=== PATIENT | male | born 1985 | race Caucasian/White ===

== ENCOUNTER 2017-05-19 02:15 | Emergency (ER) | payer MEDICAID ==
[~2017-05-19] VITALS: Ht 167.6 cm; Wt 70.3 kg
[2017-05-19 04:03] LABS: Basophils # (auto) 0.1 uL; Basophils % (auto) 0.6 % (0.0-2.0); Eosinophils # (auto) 0 uL; Eosinophils % (auto) 0.1 % (0.0-7.0); Hematocrit 41.9 % (41.0-53.0); Hemoglobin 14.1 g/dL (13.5-17.5); Lymphocytes # (auto) 3.7 uL; Mean Corpuscular Hemoglobin 28.4 pg (28.0-32.0); Mean Corpuscular Hgb Conc. 33.7 g/dL (32.0-36.0); Mean Corpuscular Volume 84.5 fL (80.0-100.0); Monocytes # (auto) 1.2 uL; Neutrophils % (auto) 70.3 % (37.0-80.0); Platelet Count (auto) 210 10^3/uL (140-450); Red Blood Cells 4.95 10^6/uL (4.5-5.90); Red Cell Distribution Width 14.1 % (11.8-14.3)
[2017-05-19 04:26] LABS: Albumin 3.6 g/dL (3.4-5.0); BUN/Creatinine Ratio 13.2; Calcium 8.8 mg/dL (8.5-10.1); Potassium 3.6 mmol/L (3.5-5.1)
[2017-05-19 04:29] LABS: Bilirubin, Total 0.9 mg/dL (0.2-1.0); Total Protein 8.2 g/dL (6.4-8.2)
[2017-05-19] MEDS ORDERED: SODIUM CHLORIDE 0.9% 1,000 ML IV ONE (08:08)
[2017-05-19] MEDS ORDERED: cefTRIAXone 1GM/10ml IVPUSH 10 ML IV ONE (08:15)
[2017-05-19] MEDS ORDERED: LIDOCAINE 2%HCL (LOCAL ANESTH.) INJ 20ML MDV ID ONE (08:15)
[2017-05-19] MEDS ORDERED: TETANUS-DIPTH-ACEL PERTUSSIS 0.5ML SYRG IM ONE (08:15)
[2017-05-19] MEDS ORDERED: NEOMYCIN-BACITRACIN-POLYM UNITDOSE PKG TOP OINT TOP ONE (08:15)
[2017-05-19 09:40] VITALS: BP 98/66
[2017-05-19] MEDS ORDERED: KETOROLAC TROMETH 30 MG/ML 1ML VIAL IV ONE (10:30)
[2017-05-19] MEDS ORDERED: PROMETHAZINE HCL 25 MG/ML 1ML IV ONE (10:30)
[2017-05-19 10:48] LABS: Urine Bacteria NONE SEEN /hpf (None Seen); Urine Blood Negative /uL (Negative); Urine Mucus FEW (None Seen); Urine Specific Gravity 1.027 (1.001-1.035); Urine WBC 2 /hpf (0 - 3)
[2017-05-19 11:14] LABS: Alcohol, Urine < 3.0 mg/dL (0-5); Amphetamine Screen, Urine POSITIVE (NEGATIVE); Barbiturate Scree,Urine NEGATIVE (NEGATIVE); Benzodiazephine Screen, Urine NEGATIVE (NEGATIVE); Cannabinoid Screen, Urine POSITIVE (NEGATIVE); Cocaine Screen, Urine NEGATIVE (NEGATIVE); Opiate Scree,Urine POSITIVE (NEGATIVE); Phencyclidine Screen, Urine NEGATIVE (NEGATIVE)
== END 2017-05-19 11:08 | disposition home or self-care (01) ==
LOC: EDBD 02:15 → ER 02:15
DX: L02.511 Cutaneous abscess of right hand (principal); F11.20 Opioid dependence, uncomplicated; F15.10 Other stimulant abuse, uncomplicated; F12.10 Cannabis abuse, uncomplicated; Z59.0 Homelessness; Z88.0 Allergy status to penicillin
CPT/HCPCS: 10060; 36415; 71046; 73130; 80053; 80307; 81001; 83735; 85025; 87205; 90471; 90715; 96361; 96374; 96375; 99285; J1885; J2550; J7030; 87077; 87186

== ENCOUNTER 2019-11-07 22:40 | Emergency (ER) | payer MEDICAID | END 2019-11-07 23:00 | disposition left against medical advice (07) | LOC: ER 22:40 → EDBD 22:40 → ER 23:00 | DX: T40.0X1A Poisoning by opium, accidental (unintentional), initial encounter (principal); F17.210 Nicotine dependence, cigarettes, uncomplicated; F12.10 Cannabis abuse, uncomplicated; F15.10 Other stimulant abuse, uncomplicated; Z59.0 Homelessness; Z88.0 Allergy status to penicillin; Y92.9 Unspecified place or not applicable ==

== ENCOUNTER 2021-06-05 07:01 | Emergency (ER) | payer MEDICAID ==
[~2021-06-05] VITALS: Ht 175.3 cm; Wt 77.1 kg
[2021-06-05] MEDS ORDERED: ACET-1158 PO (09:35)
[2021-06-05] MEDS ORDERED: DIPH25CA66 PO (09:35)
[2021-06-05] MEDS ORDERED: AMOX-277 PO (09:35)
[2021-06-05] MEDS ORDERED: PRED20TA2 PO (09:35)
[2021-06-05 09:51] VITALS: BP 121/68
== END 2021-06-05 10:14 | disposition home or self-care (01) ==
LOC: ER 07:01
DX: T78.40XA Allergy, unspecified, initial encounter (principal); K02.9 Dental caries, unspecified; F17.210 Nicotine dependence, cigarettes, uncomplicated; Z59.00 Homelessness unspecified; Z79.2 Long term (current) use of antibiotics; Z79.899 Other long term (current) drug therapy; Z88.0 Allergy status to penicillin; Y92.89 Other specified places as the place of occurrence of the external cause

== ENCOUNTER 2023-08-01 22:46 | Emergency (ER) | payer MEDICAID ==
[~2023-08-01] VITALS: Ht 172.7 cm; Wt 85.0 kg
[~2023-08-01 22:46] MED LIST: ACET500T58 PO; AMOX875T4 PO; DIPH25CA66 PO; PRED20TA2 PO
[2023-08-01] MEDS ORDERED: SODIUM CHLORIDE 0.9% 1,000 ML IV ONE (23:15)
[2023-08-01 23:55] LABS: Basophils # (auto) 0.1 10 ^3/uL (0-0.2); Basophils % (auto) 0.4 % (0.0-2.0); Eosinophils # (auto) 0 10 ^3/uL (0-0.8); Eosinophils % (auto) 0.2 % (0.0-7.0); Hematocrit 38.5 % (41.0-53.0); Hemoglobin 13.3 g/dL (13.5-17.5); Lymphocytes # (auto) 1.6 10 ^3/uL (0.4-5.4); Lymphocytes % (auto) 8.9 % (10.0-50.0); Mean Corpuscular Hemoglobin 29.1 pg (28.0-32.0); Mean Corpuscular Hgb Conc. 34.4 g/dL (32.0-36.0); Mean Corpuscular Volume 84.6 fL (80.0-100.0); Monocytes # (auto) 1.3 10 ^3/uL (0-1.3); Monocytes % (auto) 7.2 % (0.0-12.0); Neutrophils # (auto) 14.9 10 ^3/uL (1.6-8.6); Neutrophils % (auto) 83.3 % (37.0-80.0); Red Blood Cells 4.55 10^6/uL (4.5-5.90); Red Cell Distribution Width 13.2 % (11.8-14.3); White Blood Cell 17.8 10^3/uL (4.4-10.8)
[2023-08-02 00:06] LABS: Alanine Aminotransferase 87 U/L (7-40); Albumin 4.5 g/dL (3.2-4.8); Alkaline Phosphatase 119 U/L (46-116); Anion Gap 7 (5-15); Aspartate Aminotransferase 70 U/L (13-40); BUN/Creatinine Ratio 11.3 (10.0-20.0); Blood Alcohol < 3.0 mg/dL (<10); Blood Urea Nitrogen 9 mg/dL (9-23); Calcium 10.3 mg/dL (8.5-10.1); Carbon Dioxide 34 mmol/L (20-30); Chloride 91 mmol/L (98-107); Glucose 103 mg/dL (74-106); Potassium 2.6 mmol/L (3.5-5.1); Sodium 132 mmol/L (136-145)
[2023-08-02 00:07] LABS: Acetaminophen < 2.0 UG/ML (10.0-20.0); Bilirubin, Total 0.8 mg/dL (0.2-1.0); Total Protein 8.5 g/dL (5.7-8.2)
[2023-08-02 00:09] LABS: Salicylate < 3.0 mg/dL (2.8-20.0)
[2023-08-02] MEDS ORDERED: POTASSIUM CHL 20 Meq TABLET PO ONE (00:45)
[2023-08-02] MEDS ORDERED: NALO4SPR2 (02:47)
[2023-08-02 03:43] VITALS: BP 120/73; PULSE 117; RESP 20; TEMP 98.6; O2SAT 97
== END 2023-08-02 03:42 | disposition home or self-care (01) ==
LOC: EDBD 22:46 → ER 22:46 → EDUNIT# 22:46 → ER 08-02 03:42
DX: T40.411A Poisoning by fentanyl or fentanyl analogs, accidental (unintentional), initial encounter (principal); F17.210 Nicotine dependence, cigarettes, uncomplicated; Z59.00 Homelessness unspecified; Z79.2 Long term (current) use of antibiotics; Z79.899 Other long term (current) drug therapy; Z88.0 Allergy status to penicillin; Y92.89 Other specified places as the place of occurrence of the external cause
CPT/HCPCS: 36415; 80053; 80320; 80329; 85025